=== PATIENT | female | born 1945 | race Caucasian/White ===

== ENCOUNTER → 2016-12-29 | Outpatient (CLI) | payer MEDICARE ==
[~2016-12-29] MED LIST: ALEVE PM CAPLE1 EACH PO; ALEVE220 M1 PO; ALLEGRA PO; ASPIRIN EC81 M1 PO; BIOTIN10000 MC1 PO; C-500500 M1 PO; CALCIUM 500 +1 EAC3 PO; CENTRUM SILVER1 EAC3 PO; CONDROITIN PO; EMU-LAC HYDRAT120 ML TOP; ESTRING1 EACH VAG; FISH OIL 1,2001 CAP PO; FLAX SEED OIL1 EACH PO; FLONASE ALLERG9.9 ML; GLUCOSAMINE 1,51 CA1 PO; GLUCOSAMINE CH1 EAC1 PO; HYDROCODON-ACE1 EAC5 PO; IBUPROFEN600 MG PO; PROGESTERONE100 MG PO; TUMERIC PO; VITAMIN D31000 UNIT PO
--- NOTE | ~2016-12-29 | CR63 ---
[facility] A Service of [facility] & [facility] RADIOLOGY TEXT RESULTS PATIENT: JL FOOTE LOCATION: [facility] : 47 UNIT #: [id number] AGE: [address]: Teja Mandel MD SEX: F ORDER DR: [id number] [facility] [address] [place], [place] [address] [id number] O MR#: [id number] Acc #: [id number] NAME: JL FOOTE : 1945 SEX: F STUDY DATE/TIME: 12/29/2016 9:59 UNIT: [facility] ROOM: STUDY DESCRIPTION: CR Chest 2 View Attending Physician: Teja Mandel M.D. Referring Physician: Teja Mandel M.D. Ordering Physician: Teja Mandel M.D. Primary Care Physician: Sung Kaiser M.D. MEDICAL IMAGING REPORT This report is preliminary unless electronic signature is present EXAM Chest PA and lateral 12/29/2016 HISTORY Osteoarthritis right knee. Preop right total knee replacement. Smoking history. FINDINGS PA and lateral examination of the chest upright shows a good expansion of the parenchyma with a normal distribution of the pulmonary vascularity. There is no indication of congestion, effusion, infiltrate, tumor, or nodular density. The pleural reflections and diaphragmatic contours are normal. The cardiac silhouette and mediastinal anatomy is within normal limits. IMPRESSION Normal chest. Dictated by... Marvin Carreon M.D. THIS IS AN ELECTRONICALLY VERIFIED REPORT Marvin Carreon M.D. at 12/30/2016 8:07 AM KRT/jeremy TD: 12/29/2016 11:48 JOB #: [id number] MEDICAL IMAGING REPORT Page 1 of 1 COPY
--- NOTE | ~2016-12-29 | CO ---
Unit #: [id number] #: [id number] Patient: JL FOOTE [id number] [address] [place], [place] [address] [id number] O MR#: [id number] NAME: JL FOOTE ROOM: Age: Sex: F Admission Date: 12/29/2016 : 1945 Attending Physician: Teja Mandel M.D. Primary Care Physician: Sung Kaiser M.D. Consultation Date: 12/29/2016 CONSULTATION REPORT DATE OF ANTICIPATED ADMISSION/PROCEDURE January 10, 2017 REASON FOR CONSULTATION Preoperative medical evaluation prior to right total knee arthroplasty scheduled by Dr. Mandel for January 10, 2017. HISTORY OF PRESENT ILLNESS The patient is a 71-year-old female who presented to preprocedural screening for the reasons indicated above. Patient reports right knee pain today. She denies chest pain, pressure, arm, neck, jaw pain or pressure, and denies shortness of air, dyspnea on exertion, paroxysmal nocturnal dyspnea, and orthopnea. She denies recommendations for evaluation of obstructive sleep apnea. She denies lightheadedness, dizziness, presyncope, syncope, and palpitations, denies history of myocardial infarction, congestive heart failure, CVA, TIA, diabetes, and kidney disease. She has been evaluated by Dr. Mandel and scheduled for the above-referenced procedure. PAST MEDICAL HISTORY 1. Osteoarthritis. 2. Hyperthyroidism for which she was on medications at one point but has not required medications recently. 3. Postmenopausal on hormone replacement therapy. 4. Obesity with BMI of 30. 5. Chronic intermittent neck pain. PAST SURGICAL HISTORY 1. Dilatation and curettage with hysteroscopy in 2012. 2. Colonoscopy in 2014. 3. Cardiac catheterization in 2010. 4. Right and left toe surgery. 5. Left knee arthroscopy. 6. Repair of broken wrist. 7. Bunionectomy on both feet. Patient denies a personal and family history of complications to anesthesia. ALLERGIES Denies latex allergy and medication allergies. CURRENT MEDICATIONS 1. Jo Ann 60 mg p.o. daily. Unit #: [id number] #: [id number] Patient: JL FOOTE 2. Flonase Allergy Relief as directed and as needed for nasal congestion. 3. Femring (estradiol acetate vaginal ring) every 3 months. 4. Progesterone 100 mg p.o. daily. 5. Centrum Silver Women's tab 1 p.o. daily. 6. Fish oil 1200 mg softgel 1 cap p.o. daily. 7. Flaxseed oil 1300 mg softgel p.o. daily. 8. Calcium plus D3 at 1200 mg p.o. daily. 9. Ascorbic acid unknown dose p.o. daily. 10. Biotin unknown dose p.o. daily. 11. Aspirin EC 81 mg p.o. daily. 12. Tumeric 450 mg p.o. daily. 13. Glucosamine 1500 mg cap 1 p.o. daily. 14. Chondroitin 1200 mg p.o. t.i.d. 15. Aleve 220 mg p.r.n. pain. 16. Aleve PM caplet 220 mg p.o. daily. 17. Ibuprofen 600 mg p.o. p.r.n. pain. 18. Vitamin D3 at 1000 units p.o. daily. SOCIAL HISTORY Denies tobacco use and illicit drug use. Consumes ETOH socially. REVIEW OF SYSTEMS Right knee pain, left knee popping, and intermittent chronic neck pain with recent flare. A 10-point review of systems was conducted and otherwise negative except as indicated under History of Present Illness above. PHYSICAL EXAMINATION GENERAL: A 71-year-old female awake, alert, and in no acute distress. VITAL SIGNS: Temperature 97, heart rate 71, respiratory rate 16, blood pressure 133/85, and oxygen saturation 99% on room air. HEENT: Atraumatic and normocephalic. Sclerae are anicteric. No discharge from eyes, ears, or nares. LYMPHATICS: No preauricular, postauricular, tonsillar, or submental anterior or posterior cervical, supraclavicular, or infraclavicular adenopathy. ENDOCRINE: No thyromegaly or thyroid nodule tenderness. RESPIRATORY: Clear to auscultation all barboza bilaterally without wheezes, rhonchi, or rales. CARDIOVASCULAR: S1 and S2, regular rate and rhythm, without murmur or rub. GASTROINTESTINAL: Bowel sounds positive x4. Soft, nontender, and nondistended. EXTREMITIES: No edema, cyanosis, or clubbing. Positive varicose veins bilateral lower extremities. Calves soft and nontender. NEUROLOGIC: Alert and oriented x3. Cranial nerves II-XII grossly intact. Speech clear. Follows all commands. DIAGNOSTIC STUDIES LABORATORY: WBC 5.2, hemoglobin 12.7, hematocrit 39, and platelet count 242,000. Sodium 140, potassium 4, chloride 104, CO2 of 29, glucose 81, BUN 15, creatinine 0.6, calcium 9.4, AST 21, ALT 17, alkaline phosphatase 64, bilirubin total 0.9, total protein 6.5, and albumin 3.6. PT 10.6 and INR 1. Urinalysis negative with neither microscopic nor culture indicated. Blood type O positive. Antibody screen negative. MRSA screen pending at this time. IMAGING: Two-view chest x-ray report pending at this time. Unit #: [id number] #: [id number] Patient: JL FOOTE CARDIOLOGY: A 12-lead EKG shows normal sinus rhythm and possible left atrial enlargement. Tracing reviewed by me. Confirmed report pending at this time. Nuclear stress test dated August 17, 2016, conclusion: Fixed apical wall defect suggestive of thinning with normal wall motion and normal ejection fraction of 80%. Transthoracic echocardiography report dated August 17, 2016, summary: LV size normal. Normal LV wall thickness. EF visually estimated at 60% to 65%. Impaired relaxation compatible with diastolic dysfunction. No evidence of aortic valve regurgitation. Mild mitral regurgitation present. Tricuspid valve structurally normal. RVSP is 32 mmHg. Normal aortic root size. Ascending aorta is 3.5 cm. IMPRESSION The patient is a 71-year-old female who presented to preprocedural screening for: 1. Preoperative medical evaluation prior to right total knee arthroplasty. The patient's Peña Revised Cardiac Risk Index is equal to 0.4%. This represents the patient's perioperative risk of cardiac , fatal or nonfatal myocardial infarction, cardiopulmonary arrest, arrhythmia, and/or pulmonary edema. This has been discussed in detail with the patient, and she wishes to proceed with surgery as scheduled at this time. 2. History of hyperthyroidism. Will check TSH and free T4 off blood in lab today. 3. Postmenopausal on hormone replacement therapy. 4. Obesity with body mass index of 30. 5. Osteoarthritis. 6. Chronic intermittent neck pain. 7. Dilated ascending aorta of 3.5 cm July 2016 without further recommendation for followup per patient report. Thank you for allowing us to participate in the care of this patient. We will gladly follow for postop medical management pending order of Dr. Mandel and any further recommendations he may have regarding preoperative evaluation of this patient. Dictated by... Arielle Dickens A.P.R.N. for Torsten Roper/salas TD: 12/29/2016 15:42 JOB #: [id number] CONSULTATION REPORT Page 1 of 1 X Arielle Dickens [employer] X CONSULTATION REPORT
--- NOTE | ~2016-12-29 | EKG ---
PATIENT: JL FOOTE UNIT #: [id number] Ventricular Rate: 63 BPM Atrial Rate: 63 BPM P-R Interval: 142 ms QRS Duration: 80 ms Q-T Interval: 406 ms QTC Calculation(Bezet): 415 ms P Conifer: 68 degrees Calculated R Conifer: 44 degrees Calculated T Conifer: 45 degrees Diagnosis Line: Normal sinus rhythm Diagnosis Line: Possible Left atrial enlargement Diagnosis Line: Borderline ECG Diagnosis Line: No previous ECGs available Diagnosis Line: Confirmed by JUAN ALBERTO MILLER MD ([id number]) on 12/29/2016 Diagnosis Line: 10:47:00 PM INTERPRETING MD: PAUL BECKER
[2016-12-29 09:00] LABS: URINE APPEARANCE CLEAR; URINE BILIRUBIN NEG (NEG); URINE BLOOD NEG (NEG); URINE COLOR YELLOW; URINE GLUCOSE NEG (NEG); URINE KETONE NEG (NEG); URINE LEUKOCYTE ESTERASE NEG (NEG); URINE NITRATE NEG (NEG); URINE PH 7.5 (5-8); URINE PROTEIN NEG (NEG); URINE SPECIFIC GRAVITY 1.003 (1.003-1.035); URINE UROBILINOGEN 0.2 MG/DL (NEG)
[2016-12-29 09:03] LABS: HEMOGLOBIN 12.7 gm/dL (12.0-16.0); MEAN CELL VOLUME 90.1 FL (83-96); MEAN CORPUSCULAR HEMOGLOBIN 29.2 PG (28-34); MEAN CORPUSCULAR HGB CONC 32.4 g/dL (30-36); MEAN PLATELET VOLUME 7.9 FL (6.5-11.5); RED BLOOD COUNT 4.33 X10e (3.90-5.30); RED CELL DISTRIBUTION WIDTH 13.8 % (11.0-15.5); WHITE BLOOD COUNT 5.2 X10e3 (4.0-10.5)
[2016-12-29 09:10] LABS: CULTURE INDICATED? NO; URINE SOURCE CLEAN CATCH
[2016-12-29 09:13] LABS: PROTHROMBIN TIME (PATIENT) 10.6 SECONDS (9.6-11.5)
[2016-12-29 09:42] LABS: ALBUMIN SERUM 3.6 g/dL (3.5-5.0); BILIRUBIN,TOTAL 0.9 mg/dL (0.2-2.0); CALCIUM SERUM 9.4 mg/dL (8.4-10.2); CREATININE SERUM 0.6 mg/dL (0.6-1.4); GLOM FILT RATE Estimated 92.4 mL/min (>60); PROTEIN TOTAL SERUM 6.5 g/dL (6.0-8.3)
[2016-12-29 12:14] LABS: THYROID STIMULATING HORMONE 1.86 uIU/ml (0.34-5.60)
[2016-12-29 12:21] LABS: FREE THYROXIN (T4) 1.46 ng/dL (0.58-1.64)
== END | disposition home or self-care (01) ==
LOC: CAMB 07:59
PROVIDERS: Orthopaedic Surgery
DX: Z01.818 Encounter for other preprocedural examination (principal); M17.11 Unilateral primary osteoarthritis, right knee
CPT/HCPCS: 36415; 71020; 80053; 81003; 84439; 84443; 85027; 85610; 86850; 86900; 86901; 87070; 93005

== ENCOUNTER 2017-01-10 10:12 | Inpatient (IN) | payer MEDICARE ==
--- NOTE | ~2017-01-10 | OR ---
Unit #: [id number] #: [id number] Patient: JL FOOTE [id number] [address] [place], [place] [address] [id number] I MR#: [id number] NAME: JL FOOTE ROOM: [facility] Date of Procedure: 01/10/2017 Admission Date: 01/10/2017 Surgeon: Teja Mandel M.D. : 1945 Attending Physician: Teja Mandel M.D. Primary Care Physician: Michael Tran M.D. OPERATIVE REPORT PREOPERATIVE DIAGNOSIS Primary localized osteoarthritis of the right knee. POSTOPERATIVE DIAGNOSIS Primary localized osteoarthritis of the right knee. PROCEDURE PERFORMED Right total knee. ASSISTANTS Leonid and Lilly. ANESTHESIA Adductor canal block plus general. ESTIMATED BLOOD LOSS 100 mL. INDICATIONS FOR PROCEDURE The patient is a 71-year-old with severe pain in the right knee. She has had pain for years, which got progressively worse. X-rays show she has [id number] with subchondral sclerosis and periarticular osteophytes. She has tried injections and anti-inflammatories with no relief of her discomfort. She was brought to the operating room today for right total knee. DESCRIPTION OF PROCEDURE The patient was given 1 g of Kefzol in the holding room. This will be continued postop, but discontinued within 23 hours the start time of surgery. She was then given an adductor canal block, brought back to the operating room, given a general anesthetic. Tourniquet was placed around the right thigh. The right leg was prepped and draped in a sterile fashion. Tourniquet was inflated to 250. A straight anterior skin incision was made. The subcutaneous dissected away. Medial arthrotomy was performed. Patella was slid to the side. Osteophytes were removed from the femur. The intramedullary guide was used and a 6-degree valgus cut was made on the distal femur. The femur was sized and found to be a size 4. The anterior-posterior cutting block was applied. Rotation was checked. The anterior and posterior cuts were made along with the chamfer cuts. Proximal tibial cut was made using a 0-degree cutting block. It was sized at a 3. We then removed any posterior condylar osteophytes. Remaining meniscus fragments were debrided. The posterior capsule and Unit #: [id number] #: [id number] Patient: JL FOOTE A periosteum were injected with a ropivacaine mixture. Trial femur was applied. The drill holes were made for lugs on the femoral component. The trial tibia was applied, which was a size 3 with [address] trial insert in place. The knee came to full extension and good stability in extension and flexion. Patella was grasped with 2 towel clips, measured 23 mm thick, cut smooth at 13, and a 38 patella was the appropriate size. The 3 drill holes were made. Trial patella applied and it tracked properly. We then removed all the trials. We used the drill and punch for the tibial tray. The knee was irrigated and dried while the cement was mixed. Then, all 3 components were cemented simultaneously. Once again it was a size 4 narrow femur cruciate retaining, size 3 all poly tibia, 8 mm thick, and a 38 patella from the De[employer] P[employer] Sigma Knee System. Any excess cement was removed and after the cement was hardened, the tourniquet was released. Hemostasis was obtained. The rest of the ropivacaine mixture was injected, and then the wound was closed using 0 Ethibond in the arthrotomy, 0 and 2-0 Vicryl in the subcutaneous, and nuno in the skin. Dictated by... Torsten Keen/mercedes TD: 01/16/2017 22:37 JOB #: [id number] OPERATIVE REPORT Page 1 of 1 X Teja Mandel MD X PROCEDURE OPERATIVE NOTE
--- NOTE | ~2017-01-10 | DS ---
Unit #: [id number] #: [id number] Patient: JL FOOTE [id number] [address] [place], [place] [address] [id number] I MR#: [id number] NAME: JL FOOTE ROOM: [facility] Age: 71 Sex: F Admission Date: 01/10/2017 : 1945 Discharge Date: 01/11/2017 Attending Physician: Teja Mandel M.D. Primary Care Physician: Michael Tran M.D. DISCHARGE SUMMARY ADMITTING DIAGNOSIS Right knee osteoarthritis. DISCHARGE DIAGNOSIS Right knee osteoarthritis. HOSPITAL COURSE On 01/10/2017, Ms. Foote underwent a right total knee arthroplasty. She tolerated the procedure well. She was transported to the fourth floor where she underwent physical therapy, medical management and anticoagulation therapy. She is doing well and is ready to be discharged. CONDITION UPON DISCHARGE Stable. DISPOSITION Discharge home with home health. MEDICATIONS Medications on discharge include her routine home meds, in addition to [place] 10 and aspirin 325 mg p.o. b.i.d. FOLLOW-UP AND INSTRUCTIONS 1. Ms. Foote is going to be discharged home. 2. No labs are to be drawn at this time. 3. Physical therapy is to be done for active range of motion, strengthening and progressive ambulation. 4. The patient will be on a walker for 4 weeks and a cane for an additional 2 weeks. 5. Followup appointment with Dr. Mandel is in 6 weeks. Please call our office for that appointment date and time. Dictated by... García FischerAJoshC. for Torsten Keen/carlene TD: 01/11/2017 10:12 JOB #: [id number] Unit #: [id number] #: [id number] Patient: JL FOOTE DISCHARGE SUMMARY Page 1 of 1 X Lia Dickey DISCHARGE SUMMARY
--- NOTE | ~2017-01-10 | OR ---
Unit #: [id number] #: [id number] Patient: JL FOOTE [id number] [address] [place], [place] [address] [id number] I MR#: [id number] NAME: JL FOOTE ROOM: [facility] Date of Procedure: 01/10/2017 Admission Date: 01/10/2017 Surgeon: Teja Mandel M.D. : 1945 Attending Physician: Teja Mandel M.D. Primary Care Physician: Michael Tran M.D. OPERATIVE REPORT PREOPERATIVE DIAGNOSIS Primary localized osteoarthritis of the right knee. POSTOPERATIVE DIAGNOSIS Primary localized osteoarthritis of the right knee. PROCEDURE PERFORMED Right total knee. ASSISTANTS Leonid and Lilly. ANESTHESIA Adductor canal block plus general. ESTIMATED BLOOD LOSS 100 mL. INDICATIONS FOR PROCEDURE The patient is a 71-year-old with severe pain in her right knee. She has had pain for months. It has gotten progressively worse. She has tried injections and antiinflammatories with no relief of her discomfort. Her x-rays show that she has [id number] with subchondral sclerosis and periarticular osteophytes. She is brought to the operating room today for a total knee. DESCRIPTION OF PROCEDURE The patient was brought to the holding room, given an adductor canal block and 1 g of Kefzol. The Kefzol will be continued postop, but discontinued within 23 hours from the start time of surgery. The patient then had the tourniquet placed around the right leg. The leg was prepped and draped. Tourniquet was inflated to 250. A straight anterior skin incision was made. The subcutaneous dissected away and a medial arthrotomy was performed. Patella was slid to the side. Osteophytes removed from the femur. The intramedullary guide was used and a 6-degree valgus cut was made on the distal femur. The femur was sized and found to be a size 4. The anterior-posterior cutting block was applied. Rotation was checked in the knee. Anterior and posterior cuts were made along with the chamfer cuts. Proximal tibial cut was made using a 0-degree cutting block. The tibia was sized and found to be a size 3. We then removed any posterior condylar osteophytes. The remaining meniscal fragments were debrided. The posterior capsule and periosteum were injected with a ropivacaine. Unit #: [id number] #: [id number] Patient: JL FOOTE A Trial femur was applied. The drill holes were made. We found we needed a narrow size 4 femur, size 3 tibia was applied with an 8 insert. The knee came to full extension and good stability in extension and flexion. Rotation of the tibia was marked and the external alignment guide showed appropriate alignment of the limb. The patella was grasped with 2 towel clips. It measured 23 mm thick, cut smooth at 14 and a 38 patella was the appropriate size. Three drill holes were made. Trial patella applied and it tracked properly. We then removed all the trials, used the drill and punch for the tibial tray. The knee was irrigated and dried while the cement was mixed and then all 3 components were cemented simultaneously. Once again, it was a size 4 narrow femur cruciate retaining, size 3 tibia, all poly 8 mm thick, and a 38 patella from the De[employer] P[employer] Sigma knee system. After the cement was hardened, the ropivacaine mixture was injected. The knee was irrigated with Betadine and then bacitracin and then closed using 0 Ethibond in the arthrotomy, 0 and 2-0 Vicryl in the subcutaneous, and nuno in the skin. psych assistant, Perry Jaquez was present throughout the entire case. Dictated by... Torsten Keen/mercedes TD: 01/11/2017 08:30 JOB #: [id number] OPERATIVE REPORT Page 1 of 1 X Teja Mandel MD PROCEDURE OPERATIVE NOTE
[~2017-01-10 10:12] MED LIST changes: -EMU-LAC HYDRAT120 ML TOP; -GLUCOSAMINE CH1 EAC1 PO; -HYDROCODON-ACE1 EAC5 PO
[2017-01-10] MEDS ORDERED: GLUCOSAMINE CH1 EAC1 PO (10:43)
[2017-01-10] MEDS ORDERED: EMU-LAC HYDRAT120 ML TOP (10:44)
[2017-01-10 11:18] LABS: PROTHROMBIN TIME (PATIENT) 10.7 SECONDS (9.6-11.5)
[2017-01-11 03:58] LABS: HEMATOCRIT 36.2 % (35.0-45.0); HEMOGLOBIN 11.8 gm/dL (12.0-16.0)
[2017-01-11] MEDS ORDERED: HYDROCODON-ACE1 EAC5 PO (11:15)
== END 2017-01-11 12:00 | disposition home health service (06) | DRG 470 ==
LOC: CSUR 10:12 → CPACUOF 11:30 → C4B 20:26
PROVIDERS: Orthopaedic Surgery
PROC: 0SRC0J9 Replacement of Right Knee Joint with Synthetic Substitute, Cemented, Open Approach (ICD-10-PCS; principal; 2017-01-10 12:00)
DX: M17.0 Bilateral primary osteoarthritis of knee (principal); D62 Acute posthemorrhagic anemia; Z98.49 Cataract extraction status, unspecified eye; Z83.3 Family history of diabetes mellitus; Z87.891 Personal history of nicotine dependence; E66.9 Obesity, unspecified; Z68.30 Body mass index [BMI] 30.0-30.9, adult; M54.2 Cervicalgia; G89.29 Other chronic pain; E05.90 Thyrotoxicosis, unspecified without thyrotoxic crisis or storm
CPT/HCPCS: 85014; 85018; 85610; 94760; 97110; 97116; 97163; C1776; G8978-GP; G8979-GP; G8980-GP; J0131; J0171; J0690; J0735; J1100; J1170; J1885; J2250; J2270; J2405; J2795; J3010